=== PATIENT | male | born 2000 | race Caucasian/White ===

== ENCOUNTER 2021-12-06 14:40 | Emergency (ER) | payer OTHER, SELFPAY ==
[2021-12-06 14:51] VITALS: BP 128/81; PULSE 70; RESP 18; TEMP 36.5; O2SAT 99
[2021-12-06] MEDS: ONDANSETRON 4 MG ODT SL (15:05)
--- NOTE | 2021-12-06 18:20 | ED.NAVMDI ---
HPI - Nausea/Vomiting/Diarrhea General Chief complaint: Nausea/Vomiting/Diarrhea Stated complaint: Nausea Vomiting diarrhea Time Seen by Provider: 12/06/21 17:50 Source: patient Mode of arrival: Ambulatory History of Present Illness HPI Narrative: Patient is a 21-year-old healthy male who presents with nausea. He thinks he 882 bad hot dogs yesterday. He had a bowl of cereal this morning. He felt nauseous ever since he has had a little bit of diarrhea. He has not thrown up. However he has not been able or wanting to try to keep anything down. However after Zofran and being in the emergency department for 3 hours he overall feels better and hungry. He has no abdominal pain no fever or chills. Overall feeling much better. Related Data Previous Rx's Medication Instructions Recorded ondansetron 4 mg disintegrating 4 mg PO Q8H PRN nausea and 12/06/21 tablet vomiting #10 tabs Review of Systems Review of Systems Narrative: GENERAL: Denies chills,fever HEENT: Denies throat pain RESPIRATORY: Denies dyspnea, cough, wheezing CARDIOVASCULAR: Denies chest pain, palpitations GASTROINTESTINAL: See HPI MUSCULOSKELETAL: Denies extremity pain, injury SKIN: No rash, no laceration, no pruritus NEUROLOGIC: Denies weakness, dizziness, headache, numbness 8 point review of systems is negative except for those stated above and HPI Exam Initial Vital Signs Initial Vital Signs: Vital Signs Temperature 97.7 F 12/06/21 14:51 Pulse Rate 70 12/06/21 14:51 Respiratory Rate 18 12/06/21 14:51 Blood Pressure 128/81 12/06/21 14:51 Pulse Oximetry 99 12/06/21 14:51 Oxygen Delivery Method 12/06/21 14:51 GENERAL: Alert pleasant well-appearing [age] year old male and in no acute distress. HEENT: Head atraumatic,EOMI, pupils reactive, face symmetric, moist mucous membranes CARDIOVASCULAR: Regular rate and rhythm without murmurs, rubs or gallops. RESPIRATORY: Breath sounds equal bilaterally, no wheezes rales or rhonchi. ABDOMEN: Soft, nontender. Normoactive bowel sounds all 4 quadrants. No guarding or rebound. EXTREMITIES: Normal range of motion, no clubbing or edema. Neurovascularly intact NEUROLOGICAL: Alert and oriented x4.Normal gait and speech. SKIN: Warm, dry, no laceration, no petechiae, no rashes or lesions. Course Orders Ordered: Discontinued Medications Ondansetron HCl (Ondansetron 4 Mg Odt) 4 mg SL NOW ONE Stop: 12/06/21 14:55 Last Admin: 12/06/21 15:05 Dose: 4 mg Documented By: CHRISTIANAK Vital Signs Vital signs: Vital Signs - 8 hr 12/06/21 14:51 Temperature 97.7 F Pulse Rate 70 Respiratory Rate 18 Blood Pressure 128/81 Pulse Oximetry 99 Oxygen Delivery Method Room Air MDM - Nausea/Vomiting/Diarrhea MDM Narrative Medical decision making narrative: Patient has not been vomiting he was only felt nauseous for less than 12 hours. Overall feeling better after 1 Zofran. At this time there is no indication for any further testing. He wants to go home and knee. Overall I feel like this is a reassuring sign. Likely gastroenteritis. He is given Zofran to go home with. Discharge Plan Departure Patient Disposition: Home Clinical Impression: Gastroenteritis Instructions: DI for Viral Gastroenteritis -- Adult Activity Restrictions/Additional Instructions: *You have been diagnosed with gastroenteritis *What to do: Increase diet as tolerated. Increase fluids with Pedialyte, Gatorade broth etc *Continue to take medications as directed Zofran 4 mg every 8 hours if needed for nausea or vomiting *Follow up with your primary care provider in 2-3 days or call [phone] *Return to ER if you should have persistent vomiting does bite nausea medication, increased pain or any new, worsening or concerning symptoms Prescriptions: New ondansetron 4 mg tablet,disintegrating 4 mg PO Q8H PRN (Reason: nausea and vomiting) Qty: 10 0RF Referrals: ProviderSilver [Primary Care Provider] -
[2021-12-06] MEDS: ONDANSETRON 4 MG ODT PREPACK 1 BOTTLE MISC (18:36)
== END 2021-12-06 18:50 | disposition home or self-care (01) ==
PROVIDERS: Emergency Provider Emergency Medicine
DX: K52.9 Noninfective gastroenteritis and colitis, unspecified (principal)
CPT/HCPCS: 99283